=== PATIENT | male | born 1980 | race Caucasian/White ===

== ENCOUNTER 2018-11-05 19:43 | Observation (INO) ==
[2018-11-05] MEDS ORDERED: KETOROLAC TROMETHAMINE 60 MG/2 ML VIAL IM STA (20:50)
[2018-11-05] MEDS ORDERED: CYCLOBENZAPRINE HCL 10 MG TAB PO STA (20:51)
[2018-11-05] MEDS ORDERED: HYDROmorphone INJ 1 MG/ML SYRINGE IM STA (20:51)
--- NOTE | 2018-11-05 22:25 | Magnetic Resonance Report ---
MR lumbar spine wo con CLINICAL HISTORY: 37 years-old Male presenting with cauda equina, loss of bladder. TECHNIQUE: Multisequence, multiplanar MR imaging of the lumbar spine was performed without the use of intravenous contrast. IV contrast: None. COMPARISON: None. 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 Multiple sequences are degraded by motion artifact. This negatively affects diagnostic sensitivity th e exam. Straightening of normal lumbar lordosis possibly positional. Benign hemangioma noted in L2 and L4. Fa tty endplate changes noted at L5-S1. Vertebral bodies otherwise maintain normal height, alignment, alexandre ne marrow signal intensity. Moderate intervertebral disc height loss at L5-S1 with a disc extrusion e manating from the right paramedian aspect of the intervertebral disc with caudal migration. The extru ded fragment measures 10 x 9 mm in maximal axial dimension. This exerts mass effect on the transiting right S1 nerve root. Abutment of additional transiting right sacral nerve roots also possible. There is minimal bilateral neural foraminal narrowing at L5-S1. Remaining levels demonstrate no significan t spinal canal or neural foraminal narrowing. No paraspinal muscle edema. The spinal cord terminates in good position at the inferior endplate of L1. Cauda equina is poorly assessed though grossly lily l. T2 flow voids within the vasculature preserved. Remainder of the visualized soft tissues within no rmal limits. IMPRESSION: 1. Focal disc extrusion with caudal migration at L5-S1 resulting in mass effect on the transiting ri ght S1 nerve root and possible additional transiting right sacral nerve roots. Orthopedic/neurosurgic al consultation recommended. 2. No other evidence to suggest cauda equina impingement. The report will be called/faxed according to standard departmental protocol. Electronically signed by: Lee Cline M.D. 11/05/2018 10:23 PM
--- NOTE | 2018-11-05 22:39 | XRay Report ---
XR hip RT min 2V CLINICAL HISTORY: 37 years-old Male presenting with R hip pain since lifting a heavy object on Saturday . TECHNIQUE: Frontal and frog-leg lateral views of the right hip were obtained. COMPARISON: None. FINDINGS: Right hip joint congruent. No joint space loss. Femoral neck intact. Visualized portion of bony pelvi s intact. No acute fracture or malalignment. Calcification or ossification noted on frog-leg lateral view in the region of the left ischium, possibly degenerative related or posttraumatic. This is not c onvincing for an acute avulsion fracture fragment. No radiographic soft tissue abnormality. IMPRESSION: No acute osseous injury. Electronically signed by: Lee Cline M.D. 11/05/2018 10:38 PM
[2018-11-05] MEDS ORDERED: methylPREDNISolone 125 MG/2 ML VIAL IV STA (22:52)
[2018-11-05] MEDS ORDERED: HYDROmorphone INJ 1 MG/ML SYRINGE IV STA (22:52)
--- NOTE | 2018-11-05 23:04 | Emergency Department Note ---
Entered by Archana Rocha acting as a scribe for History of Present Illness General Chief complaint: Back Injury/Pain Stated complaint: BACK AND HIP PAIN Source: patient Mode of arrival: ambulatory Limitations: no limitations History of Present Illness Provider complaint: back pain Onset (ago): day(s) 5 Location: back and right Radiation: extremity Pain Consistency: + other (persistent ) Quality: + other (radiating) Associated symptoms: + other (peed himself) Treatments prior to arrival: other (ibuprofen, tylenol) The patient is a 37 year old male who presents to the Emergency Room with complaints of a persistent back pain that began 5 days ago. The patient reports that he first noticed the pain last Saturday while he was lifting a heavy sack of bread at work. He states that he felt the pain again on Saturday while lifting another heavy sack of bread and was evaluated at the ER. The patient notes that he did lose control of his bowels earlier today. He reports that the pain is in the lower right side of his back and that it radiates down his right hip/leg. He states that he has been taking Tylenol and ibuprofen to alleviate his symptoms. Home Medications Home Medications Medication Instructions Recorded Confirmed Type lysine 0 mg PO DAILY 11/03/18 11/05/18 History ibuprofen 800 mg PO TID #30 tab 11/07/18 Rx Allergies Allergy/AdvReac Type Severity Reaction Status Date / Time No Known Allergies Allergy Verified 11/05/18 22:47 Past Med/Surg History Medical History No significant active problems Social History Communication Ability: Effective Beliefs That Will Affect Care: None marital status: Single Current Living Situation: Alone current occupational status: employed Other Information That Helps Us Care for You: No Feels Safe at Home: Yes Safety Concerns: Feels Safe At This Time Smoking Status: Former smoker Hx Alcohol Use: No Hx Substance Use: No Review of Systems See HPI for pertinent positives & negatives. and A total of 10 systems reviewed and were otherwise negative Physical Exam Vital Signs Vital Signs - 24 hr 11/06/18 22:57 11/07/18 07:38 11/07/18 15:20 Temperature 36.8 C 36.4 C L 37.1 C Temperature Source Oral Oral Oral Pulse Rate [Right Finger] 60 59 L 70 Respiratory Rate 16 18 18 Blood Pressure [Right Arm] 129/83 104/64 149/82 H Blood Pressure Mean [Right Arm] 98 77 104 Blood Pressure Position [Right Arm] Lying Lying Pulse Oximetry 99 97 98 Oxygen Delivery Method Room Air Room Air Room Air 11/07/18 15:27 Temperature 37.1 C Temperature Source Pulse Rate [Right Finger] 70 Respiratory Rate 18 Blood Pressure [Right Arm] 149/82 H Blood Pressure Mean [Right Arm] Blood Pressure Position [Right Arm] Pulse Oximetry 98 Oxygen Delivery Method Vital signs reviewed. General: Well-appearing, in no significant distress. HEENT: No scleral icterus, PERRLA, neck supple. Atraumatic. Cardiovascular: Regular rate and rhythm, no extra sounds. Pulmonary: Clear to auscultation bilaterally, normal work of breathing. Abdomen: Soft, nontender, nondistended, positive bowel sounds. Musculoskeletal: Atraumatic, no peripheral edema. No tenderness along the lumbar spine, no CVA tenderness, negative straight leg raise. Full ROM of the right hip. Neurologic: Patient awake alert and oriented x 3 Skin: Warm, dry, no rash. Course 2047: Past medical records reviewed. The patient was evaluated in room C8, and a complete history and physical examination were performed. 2245: I reviewed the patient's case with Dr. Marroquin - Orthopedic Surgery. [facility] rec [facility] admission of the patient. 2258: I reviewed the patient's case with Dr. Bradford - [facility] Hospitalist. He will evaluate the patient for further management. Administered Medications Discontinued Medications Acetaminophen (Tylenol) 1,000 mg PO Q8H [facility] Stop: 12/06/18 16:14 Last Admin: 11/07/18 08:14 Dose: 1,000 mg Documented by: [id number] Admin: 11/07/18 00:16 Dose: 1,000 mg Documented by: [id number] Admin: 11/06/18 16:36 Dose: 1,000 mg Documented by: [id number] Calcium Gluconate (Calcium Gluconate 10%) Confirm Administered Dose 1,000 mg IV .STK-MED ONE Stop: 11/06/18 01:03 Last Admin: 11/06/18 01:34 Dose: Not Given Documented by: [id number] Cyclobenzaprine HCl (Flexeril) 10 mg PO NOW STA Stop: 11/05/18 20:52 Last Admin: 11/05/18 21:06 Dose: 10 mg Documented by: [id number] Diazepam (Valium) 2 mg PO TID PRN PRN Reason: muscle spasms Stop: 12/06/18 15:58 Last Admin: 11/07/18 11:33 Dose: 2 mg Documented by: [id number] Admin: 11/06/18 20:08 Dose: 2 mg Documented by: [id number] Hydromorphone HCl (Dilaudid) 1 mg IM NOW STA Stop: 11/05/18 20:52 Last Admin: 11/05/18 21:06 Dose: 1 mg Documented by: [id number] Hydromorphone HCl (Dilaudid) 1 mg IV NOW STA Stop: 11/05/18 22:53 Last Admin: 11/05/18 23:09 Dose: 1 mg Documented by: [id number] Calcium Gluconate 1,000 mg/ (Sodium Chloride) 60 mls @ 240 mls/hr IV NOW STA Stop: 11/06/18 01:08 Last Infusion: 11/06/18 01:43 Dose: 0 mls/hr Documented by: [id number] Admin: 11/06/18 01:25 Dose: 240 mls/hr Documented by: [id number] Potassium Chloride/Sodium Chloride (1/2 Nss + 20meq Kcl 1000ml) 20 meq in 1,000 mls @ 50 mls/hr IV .Q20H [facility] Stop: 12/06/18 02:29 Last Infusion: 11/06/18 08:40 Dose: 0 mls/hr Documented by: [id number] Admin: 11/06/18 02:31 Dose: 50 mls/hr Documented by: [id number] Ibuprofen (Motrin) 800 mg PO TID [facility] Stop: 12/06/18 20:59 Last Admin: 11/07/18 14:28 Dose: 800 mg Documented by: [id number] Admin: 11/07/18 08:14 Dose: 800 mg Documented by: [id number] Admin: 11/06/18 20:09 Dose: 800 mg Documented by: [id number] Ketorolac Tromethamine (Toradol) 60 mg IM NOW STA Stop: 11/05/18 20:51 Last Admin: 11/05/18 21:06 Dose: 60 mg Documented by: [id number] Ketorolac Tromethamine (Toradol) 15 mg IV Q4H PRN PRN Reason: Pain Stop: 11/11/18 00:34 Last Admin: 11/06/18 23:08 Dose: 15 mg Documented by: [id number] Admin: 11/06/18 19:33 Dose: 15 mg Documented by: [id number] Admin: 11/06/18 15:12 Dose: 15 mg Documented by: [id number] Admin: 11/06/18 02:36 Dose: 15 mg Documented by: [id number] Lidocaine (Lidoderm 5%) 1 patch TD HS [facility] Stop: 12/05/18 23:19 Last Admin: 11/06/18 20:08 Dose: 1 patch Documented by: [id number] Admin: 11/06/18 00:26 Dose: 1 patch Documented by: [id number] Methylprednisolone (Solumedrol) 125 mg IV NOW STA Stop: 11/05/18 22:53 Last Admin: 11/05/18 23:09 Dose: 125 mg Documented by: [id number] Miscellaneous (Remove Lidoderm Patch) 1 ea N/A QAM [facility] Stop: 12/06/18 10:59 Last Admin: 11/07/18 08:19 Dose: 1 ea Documented by: [id number] Admin: 11/06/18 10:56 Dose: 1 ea Documented by: [id number] Morphine Sulfate (Morphine Sulfate) 4 mg IV Q6H PRN PRN Reason: Pain Stop: 11/19/18 23:27 Last Admin: 11/07/18 00:41 Dose: 4 mg Documented by: [id number] Admin: 11/06/18 03:40 Dose: 4 mg Documented by: [id number] Oxycodone HCl (Roxicodone Immediate Rel) 5 mg PO Q4H PRN PRN Reason: Pain Stop: 11/20/18 16:01 Last Admin: 11/07/18 10:50 Dose: 5 mg Documented by: [id number] Admin: 11/07/18 05:38 Dose: 5 mg Documented by: [id number] Oxycodone/Acetaminophen (Percocet 5mg/325mg) 1 tab PO Q4H PRN PRN Reason: Pain Stop: 11/19/18 23:20 Last Admin: 11/06/18 06:45 Dose: 1 tab Documented by: [id number] Potassium Chloride (Klor-Con M20) 40 meq PO NOW STA Stop: 11/06/18 00:33 Last Admin: 11/06/18 00:58 Dose: 40 meq Documented by: [id number] Medical Decision Making Differential Diagnosis Differential Diagnosis includes: muscular strain, fracture, metastatic disease, disc herniation, sciatica, epidural abscess, vertebral osteomyelitis, discitis, spinal epidural hematoma, cord compression, cauda equina/conus medullaris syndrome, aortic disease, infection, shingles, renal colic, gastrointestinal, acute exacerbation of chronic back pain, as well as others were entertained. Medical Records Attestation: I reviewed the patient's medical records. Home Medications Current Medication List: was personally reviewed by me Laboratory Data Result diagrams: 11/05/18 23:01 11/06/18 07:39 Lab Results 11/05/18 11/05/18 11/06/18 Range/Units 23:01 23:01 07:39 WBC 6.77 (4.8-10.8) K/uL RBC 4.60 L (4.7-6.1) M/uL Hgb 14.0 (14.0-18.0) g/dL Hct 40.2 L (42-52) % MCV 87.4 (80-100) fL MCH 30.4 (25-34) pg MCHC 34.8 (32-36) g/dL RDW Std Deviation 40.2 (36.4-46.3) fL RDW Coeff of Eliu 12.5 (11.5-14.5) % Plt Count 162 (130-400) K/uL MPV 10.7 H (7.4-10.4) fL Immature Gran % (Auto) 0.1 % Neut % (Auto) 60.9 % Lymph % (Auto) 31.2 % Centre % (Auto) 6.8 % Eos % (Auto) 0.6 % Baso % (Auto) 0.4 % Immature Gran # (Auto) 0.01 (0.00-0.02) K/uL Neut # (Auto) 4.12 (1.4-6.5) K/uL Lymph # (Auto) 2.11 (1.2-3.4) K/uL Centre # (Auto) 0.46 (0.11-0.59) K/uL Eos # (Auto) 0.04 (0-0.5) K/uL Baso # (Auto) 0.03 (0-0.2) K/uL Sodium 142 140 (136-145) mmol/L Potassium 3.4 L 4.4 D (3.5-5.1) mmol/L Chloride 109 H 108 H (98-107) mmol/L Carbon Dioxide 26 27 (21-32) mmol/L Anion Gap 7.0 5.0 (3-11) BUN 21 H 19 H (7-18) mg/dl Creatinine 0.87 0.84 (0.6-1.4) mg/dl Est Cr Clr Drug Dosing 118.2 120.7 ml/min Est GFR ( Amer) 126.0 127.8 Est GFR (Non-Af Amer) 108.7 110.3 BUN/Creatinine Ratio 23.7 H 22.6 H (10-20) Glucose 90 143 H (70-99) mg/dl Calcium 8.2 L 8.6 (8.5-10.1) mg/dl Magnesium 2.0 (1.8-2.4) mg/dl Total Bilirubin 0.6 (0.2-1) mg/dl AST 9 L (15-37) U/L ALT 21 (12-78) U/L Alkaline Phosphatase 67 (45-117) U/L Troponin I < 0.015 (0-0.045) ng/ml Total Protein 7.2 (6.4-8.2) gm/dl Albumin 4.2 (3.4-5.0) gm/dl Globulin 3.0 (2.5-4.0) gm/dl Albumin/Globulin Ratio 1.4 (0.9-2) Imaging Data Radiologist's Impression: Radiology results as stated below per my review and the radiologist's interpretation: XR hip RT min 2V CLINICAL HISTORY: 37 years-old Male presenting with R hip pain since lifting a heavy object on Saturday. TECHNIQUE: Frontal and frog-leg lateral views of the right hip were obtained. COMPARISON: None. FINDINGS: Right hip joint congruent. No joint space loss. Femoral neck intact. Visualized portion of bony pelvis intact. No acute fracture or malalignment. Calcification or ossification noted on frog-leg lateral view in the region of the left ischium, possibly degenerative related or posttraumatic. This is not convincing for an acute avulsion fracture fragment. No radiographic soft tissue abnormality. IMPRESSION: No acute osseous injury. Electronically signed by: Lee Cline M.D. 11/05/2018 10:38 PM MR lumbar spine wo con CLINICAL HISTORY: 37 years-old Male presenting with cauda equina, loss of bladder. TECHNIQUE: Multisequence, multiplanar MR imaging of the lumbar spine was performed without the use of intravenous contrast. IV contrast: None. COMPARISON: None. 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 Multiple sequences are degraded by motion artifact. This negatively affects diagnostic sensitivity the exam. Straightening of normal lumbar lordosis possibly positional. Benign hemangioma noted in L2 and L4. Fatty endplate changes noted at L5-S1. Vertebral bodies otherwise maintain normal height, alignment, bone marrow signal intensity. Moderate intervertebral disc height loss at L5-S1 with a disc extrusion emanating from the right paramedian aspect of the intervertebral disc with caudal migration. The extruded fragment measures 10 x 9 mm in maximal axial dimension. This exerts mass effect on the transiting right S1 nerve root. Abutment of additional transiting right sacral nerve roots also possible. There is minimal bilateral neural foraminal narrowing at L5-S1. Remaining levels demonstrate no significant spinal canal or neural foraminal narrowing. No paraspinal muscle edema. The spinal cord terminates in good position at the inferior endplate of L1. Cauda equina is poorly assessed though grossly normal. T2 flow voids within the vasculature preserved. Remainder of the visualized soft tissues within normal limits. IMPRESSION: 1. Focal disc extrusion with caudal migration at L5-S1 resulting in mass effect on the transiting right S1 nerve root and possible additional transiting right sacral nerve roots. Orthopedic/neurosurgical consultation recommended. 2. No other evidence to suggest cauda equina impingement. The report will be called/faxed according to standard departmental protocol. Electronically signed by: Lee Cline M.D. 11/05/2018 10:23 PM Blood Pressure Blood Pressure Findings: Normal blood pressure Blood Pressure Disposition: did not require urgent referral MDM Narrative This patient was evaluated and appeared to be in no significant distress. Patient was initially medicated with IM Dilaudid, IM Toradol and p.o. Flexeril. X-rays of lumbar spine had been performed on the visit to the ED earlier this week. Those images were reviewed. X-ray of the right hip was performed as the patient continues to complain of discomfort, this study is negative for acute fracture. Given the patient's urinary incontinence earlier today, an MRI of the lumbar spine was performed. This study is read as above. There is a disc herniation at L5-S1 with sacral nerve root impingement. IV access was obtained and laboratory work was drawn. Patient was medicated with IV Dilaudid and methylprednisolone. The case was discussed with Dr. Marroquin of orthopedic spine given the patient's symptoms. He recommended medical admission and he will evaluate the patient. Dr. Kinsey of the hospitalist service was consulted. Patient is aware of the plan and agrees. Impression & Plan Intervertebral disc extrusion, Urinary incontinence Discharge Plan Visit Data *Final* Discharge Date/Time: 11/06/18 01:48 Chief Complaint: Back Injury/Pain Stated Complaint: BACK AND HIP PAIN ED Provider: Mima Yo Discharge Problem: Intervertebral disc extrusion, Urinary incontinence Patient Disposition: Admitted As Inpatient Condition: Good Discharge Instructions Interventions: ED Discharge Assessment Last Done: 11/06/18 01:48 Discharge Problem: Urinary incontinence Qualifiers: Urinary Incontinence type: unspecified incontinence Qualified Code(s): R32 - Unspecified urinary incontinence The scribe's documentation has been prepared under my direction and personally reviewed by me in its entirety. I confirm that the note above accurately reflects all work, treatment, procedures, and medical decision making performed by me.
[2018-11-05] MEDS ORDERED: OXYCODONE/ACETAMINOPHEN 5mg/325mg TAB PO PRN (23:21)
[2018-11-05] MEDS ORDERED: MoRPHine SULFATE 4 MG/ML 1 ML CARP\\VIAL IV PRN (23:28)
[2018-11-05 23:44] LABS: Basophils # (auto) 0.03 K/uL (0-0.2); Basophils % (auto) 0.4 %; Eosinophils # (auto) 0.04 K/uL (0-0.5); Eosinophils % (auto) 0.6 %; Hematocrit (blood only) 40.2 % (42-52); Immature Granulocytes # (auto) 0.01 K/uL (0.00-0.02); Immature Granulocytes % (auto) 0.1 %; Lymphocytes # (auto) 2.11 K/uL (1.2-3.4); Lymphocytes % (auto) 31.2 %; Mean Corpuscular Hgb Conc 34.8 g/dL (32-36); Mean Corpuscular Volume 87.4 fL (80-100); Mean Platelet Volume 10.7 fL (7.4-10.4); Monocytes # (auto) 0.46 K/uL (0.11-0.59); Monocytes % (auto) 6.8 %; Neutrophils # (auto) 4.12 K/uL (1.4-6.5); Neutrophils % (auto) 60.9 %; Platelet Count 162 K/uL (130-400); RDW Coefficient of Variation 12.5 % (11.5-14.5); RDW Standard Deviation 40.2 fL (36.4-46.3); White Blood Count 6.77 K/uL (4.8-10.8)
[2018-11-05 23:52] LABS: Alanine Aminotransferase 21 U/L (12-78); Albumin Level 4.2 gm/dl (3.4-5.0); Aspartate Aminotransferase 9 U/L (15-37); BUN Creatinine Ratio 23.7 (10-20); Blood Urea Nitrogen 21 mg/dl (7-18); Calcium 8.2 mg/dl (8.5-10.1); Carbon Dioxide 26 mmol/L (21-32); Chloride 109 mmol/L (98-107); Creatinine Clr Calc Pharmacy 118.2 ml/min; Est GFR (Non-African American) 108.7; Glucose 90 mg/dl (70-99); Potassium 3.4 mmol/L (3.5-5.1); Sodium 142 mmol/L (136-145)
[2018-11-05 23:54] LABS: Albumin Globulin Ratio 1.4 (0.9-2); Alkaline Phosphatase 67 U/L (45-117); Bilirubin,Total 0.6 mg/dl (0.2-1); Total Protein 7.2 gm/dl (6.4-8.2)
[2018-11-06 00:12] LABS: Troponin I < 0.015 ng/ml (0-0.045)
[2018-11-06] MEDS: LIDOCAINE 5% 1 PATCH TD SCH ×2 (00:26→20:08)
[2018-11-06] MEDS ORDERED: POTASSIUM CHLORIDE 20 MEQ TABCR PO STA (00:32)
[2018-11-06] MEDS ORDERED: CALCIUM GLUCONATE 10% 1,000 MG in SODIUM CHLORIDE 0.9% 50 ML IV STA (00:54)
--- NOTE | 2018-11-06 00:59 | History & Physical Report ---
Date of Service November 06, 2018 Assessment & Plan (1) Lumbosacral radiculopathy: LS radiculopathy with transient bowel incontinence S OB secondary to anxiety Hypokalemia Past tobacco abuse OBS GMF Analgesia Lidoderm patch trial Orthopedics spine consult RE back pain, abnormal MRI (ER provider already in touch with Dr. Marroquin) Anxiolytic as needed replace potassium DVT prophylaxis. SCDs Full code History of Present Illness Chief Complaint: Back pain Primary Care Provider: Kristine [facility] In Medicine History obtained from patient and records. Medical history significant for past tobacco abuse. 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 Persistent symptoms prompted ER consultation 3 days ago. Unremarkable plain LS XR. Intermittent pain relief with Tylenol/ibuprofen at home. Patient had constant low back pain symptoms the last few days without leg weakness/numbness. Last night patient noted some bowel incontinence. No fever, no chills. At the ER, patient felt short of breath after being told that he might get short of breath following IV narcotic administration for pain. Denies chest pain, cough symptoms. IV Solu-Medrol administered at the ER. Medical History as above Surgical History : Right hand trauma surgery Family History : HTN Personal/Social history : Past tobacco abuse, occasional EtOH intake, fast food restaurant employee Allergies Allergy/AdvReac Type Severity Reaction Status Date / Time No Known Allergies Allergy Verified 11/05/18 22:47 Home Medications Home Medications Medication Instructions Recorded Confirmed Type lysine 0 mg PO DAILY 11/03/18 11/05/18 History Past Med/Surg History Medical History No significant active problems Social History Preferred Language: Austrian Communication Ability: Effective Land Degradation Analyst Required: No Beliefs That Will Affect Care: None Current Living Situation: Alone current occupational status: employed Other Information That Helps Us Care for You: No Feels Safe at Home: Yes Safety Concerns: Feels Safe At This Time Smoking Status: Former smoker Hx Alcohol Use: No Hx Substance Use: No Review of Systems As per HPI, all 10 systems reviewed, all other ROS negative Physical Exam Vital Signs (Past 24 Hours): Last Vital Signs Temp 37.0 C 11/05/18 19:55 Pulse 77 11/06/18 00:27 Resp 18 11/06/18 00:27 BP 128/82 11/06/18 00:27 Pulse Ox 96 11/06/18 00:27 Physical Exam: GENERAL: Slightly uncomfortable and anxious, no respiratory distress SKIN: Normal color, warm HEENT: Bespectacled, pink palpebral conjunctivae, no ptosis, dry buccal mucosa NECK : Supple, no tenderness CHEST : CTA, no tenderness HEART : RRR, no obvious murmurs ABDOMEN: Soft, nontender BACK : Right hip tenderness; negative straight leg raise test at time of exam EXTREMITIES : No LE swelling/tenderness, no other conspicuous deformities noted NEUROLOGIC : Coherent, no facial asymmetry, no other gross focality Results & Data Laboratory Results Laboratory Results WBC 6.77 K/uL (4.8-10.8) 11/05/18 23: RBC 4.60 M/uL (4.7-6.1) L 11/05/18: Hgb 14.0 g/dL (14.0-18.0) 11/05/18: Hct 40.2 % (42-52) L 11/05/18: MCV 87.4 fL (80-100) 11/05/18: MCH 30.4 pg (25-34) 11/05/18: MCHC 34.8 g/dL (32-36) 11/05/18 23: RDW Std Deviation 40.2 fL (36.4-46.3) 11/05/18: RDW Coeff of Eliu 12.5 % (11.5-14.5) 11/05/18: Plt Count 162 K/uL (130-400) 11/05/18 23: MPV 10.7 fL (7.4-10.4) H 11/05/18: Immature Gran % (Auto) 0.1 % 11/05/18: Neut % (Auto) 60.9 % 11/05/18: Lymph % (Auto) 31.2 % 11/05/18: Barren % (Auto) 6.8 % 11/05/18: Eos % (Auto) 0.6 % 11/05/18: Baso % (Auto) 0.4 % 11/05/18: Immature Gran # (Auto) 0.01 K/uL (0.00-0.02) 11/05/18 23: Neut # (Auto) 4.12 K/uL (1.4-6.5) 11/05/18 23: Lymph # (Auto) 2.11 K/uL (1.2-3.4) 11/05/18 23: Barren # (Auto) 0.46 K/uL (0.11-0.59) 11/05/18 23: Eos # (Auto) 0.04 K/uL (0-0.5) 11/05/18 23: Baso # (Auto) 0.03 K/uL (0-0.2) 11/05/18 23: Sodium 142 mmol/L (136-145) 11/05/18 23: Potassium 3.4 mmol/L (3.5-5.1) L 11/05/18 23: Chloride 109 mmol/L (98-107) H 11/05/18 23: Carbon Dioxide 26 mmol/L (21-32) 11/05/18 23: Anion Gap 7.0 (3-11) 11/05/18 23: BUN 21 mg/dl (7-18) H 11/05/18 23: Creatinine 0.87 mg/dl (0.6-1.4) 11/05/18 23: Est Cr Clr Drug Dosing 118.2 ml/min 11/05/18 23: Est GFR ( Amer) 126.0 11/05/18 23: Est GFR (Non-Af Amer) 108.7 11/05/18 23: BUN/Creatinine Ratio 23.7 (10-20) H 11/05/18 23: Glucose 90 mg/dl (70-99) 11/05/18 23: Calcium 8.2 mg/dl (8.5-10.1) L 11/05/18 23: Magnesium 2.0 mg/dl (1.8-2.4) 11/05/18 23: Total Bilirubin 0.6 mg/dl (0.2-1) 11/05/18 23: AST 9 U/L (15-37) L 11/05/18 23: ALT 21 U/L (12-78) 11/05/18 23: Alkaline Phosphatase 67 U/L (45-117) 11/05/18 23: Troponin I < 0.015 ng/ml (0-0.045) 11/05/18 23: Total Protein 7.2 gm/dl (6.4-8.2) 11/05/18 23: Albumin 4.2 gm/dl (3.4-5.0) 11/05/18: Globulin 3.0 gm/dl (2.5-4.0) 11/05/18 23: Albumin/Globulin Ratio 1.4 (0.9-2) 11/05/18 23: Diagnostic Findings Lumbar spine MRI: 1. Focal disc extrusion with caudal migration at L5-S1 resulting in mass effect on the transiting right S1 nerve root and possible additional transiting right sacral nerve roots. Orthopedic/neurosurgical consultation recommended. 2. No other evidence to suggest cauda equina impingement. Chest x-ray as per my interpretation no acute pathology EKG as per my interpretation rate 65, NSR, no ischemia
[2018-11-06] MEDS ORDERED: CALCIUM GLUCONATE 10% 10 ML VIAL IV ONE (01:02)
[2018-11-06] MEDS ORDERED: SODIUM CHLOR 0.45% + 20MEQ KCL 20 MEQ/1,000 ML BAG IV SCH ×2 (02:08→02:30)
[2018-11-06] MEDS ORDERED: LORazepam 0.25 MG/0.5 ML VIAL IV PRN ×2 (02:08)
[2018-11-06] MEDS ORDERED: IBUPROFEN 200 MG TAB PO PRN ×2 (02:08)
[2018-11-06] MEDS ORDERED: PROCHLORPERAZINE 5 MG in SYRINGE 4 ML IV PRN (02:08)
[2018-11-06] MEDS: KETOROLAC TROMETHAMINE 15 MG/ML VIAL IV PRN ×4 (02:36→23:08)
[2018-11-06] MEDS: MoRPHine SULFATE 4 MG/ML 1 ML CARP\\VIAL IV PRN (03:40)
--- NOTE | 2018-11-06 06:44 | XRay Report ---
XR chest 1V portable CLINICAL HISTORY: Shortness of breath. COMPARISON STUDY: No previous studies for comparison. FINDINGS: Lung volumes are normal. There is no pneumothorax or pleural effusion. There is no consolid ation or evidence for pulmonary edema. Cardiac size is normal. Mediastinal contours are normal. IMPRESSION: No acute cardiopulmonary findings. Electronically signed by: Kevin Pinto M.D. 11/06/2018 6:42 AM
--- NOTE | 2018-11-06 08:18 | Consultation Report ---
DATE OF ADMISSION: 11/06/2018 CHIEF COMPLAINT: Back pain, lower extremity difficulty, paresthesias. HISTORY OF PRESENT ILLNESS: Weston is pleasant. He is 37. He was lifting at his place of employment a week or so earlier, some acute pop, pain to his lumbar spine and right lower extremity difficulty. He was seen as an outpatient, then brought to the ER for evaluation and treatment. He was seen in the hospital, thoroughly evaluated. He had a disc herniation of the spine. He was admitted for pain control. He did have 1 red flag where he is concerned about bladder leakage and bladder incontinence that little bit of a false alarm, I do not think it was overall legitimate and more may be he was hesitant with his stream. As of this morning at approximately 7:15 a.m., he has no bowel and bladder issues. He has been up to the bathroom. He is urinating. His pain is controlled, thanks to the medication. OBJECTIVE: Examination is benign. Mild pain with straight leg raising, but no weakness. No sensory or motor deficit. Images reviewed. He does on MRI scan have a disc protrusion of the spine, L5-S1. It knocks up against the S1 nerve root on the affected right hand side. There is no cauda equina compression. There is no bone plate edema. ASSESSMENT: Includes that of a delightful gentleman with a disc protrusion lumbar spine, L5-S1 on the right without cauda equina syndrome. PLAN: Surgery is not indicated today my evolve into surgery, but not today whatsoever. These patients traditionally and optimistically will improve with conservative measures. This will be a combination of good anti-inflammatory agents such as Toradol, anti-inflammatory agents, mild narcotics, sometimes a dose of steroids, sometimes epidural steroids. Physical therapy is typically used, but I do not see a lot of benefit in physical therapy. I will be visiting with the patient later on today after my surgeries, but again surgery is not indicated and he may be fed. I anticipate him going home later today or tomorrow.
[2018-11-06 08:27] LABS: BUN Creatinine Ratio 22.6 (10-20); Calcium 8.6 mg/dl (8.5-10.1); Creatinine Clr Calc Pharmacy 120.7 ml/min; Est GFR (African American) 127.8; Est GFR (Non-African American) 110.3; Potassium 4.4 mmol/L (3.5-5.1)
[2018-11-06] MEDS ORDERED: ONDANSETRON 4 MG TAB PO PRN (16:00)
[2018-11-06] MEDS: ACETAMINOPHEN 500 MG TAB PO SCH (16:36)
--- NOTE | 2018-11-06 18:37 | Hospitalist Progress Note ---
Date of Service November 06, 2018 Assessment & Plan (1) Lumbosacral radiculopathy: Lumbosacral radiculopathy secondary to focal disc migration with mass- effect on S1 nerve root. The patient is neurologically intact with no focal deficits on exam. Straight leg raise is positive on the right. conservative measures are recommended. The patient will continue on scheduled Motrin and Tylenol and will stay overnight to continue pain control efforts. (2) DVT (deep venous thrombosis): SCDs Full Dispo-DC home in a.m. Iliana Guzmán DO [facility] Hospitalist Subjective 37-year-old man presents with acute right hip pain. Lumbar spine MRI revealed focal disc extrusion extrusion with caudal migration of L5-S1 resulting in mass- effect on the transiting right S1 nerve root and possible additional transiting right sacral nerve roots. Dr. Marroquin was in to see him this morning and does not recommend surgery at this time opting for conservative measures instead. The patient has been doing well and his pain is somewhat controlled although he has required some narcotic medications and IV Toradol today. He did ambulate with physical therapy but developed a cramp in the session was caught early. We discussed the benefits of staying versus being discharged today and discussed that we would schedule Motrin and Tylenol for now to see if this would help. He can stay overnight for additional recovery and have another opportunity to discuss this with Dr. Marroquin. He is otherwise tolerating p.o., mentating at baseline and he is hemodynamically stable and afebrile. Physical Exam Vital Signs (Past 24 Hours): Last Vital Signs Temp 37 C 11/06/18 15:19 Pulse 68 11/06/18 15:19 Resp 16 11/06/18 15:19 BP 125/74 11/06/18 15:19 Pulse Ox 93 11/06/18 15:19 CONSTITUTIONAL: WNWD, vitals as above, generally well-appearing moves around the bed with ease. Able to stand up at bedside with ease. EYES: normal conjuctivae, no scleral icterus ENT: MMM RESPIRATORY: clear to auscultation bilaterally, no crackles, rales or wheezes, normal respiratory effort CARDIOVASCULAR: regular rate and rhythm, S1 and 2 heard without murmurs, gallops or rubs, no JVD, no peripheral edema, no carotid bruits GASTROINTESTINAL: normal bowel sounds, soft, nontender, nondistended MUSCULOSKELETAL: strength 5/5 throughout, head is normocephalic and atraumatic, neck supple, normal palpation of chest wall without tenderness SKIN: warm and dry NEUROLOGIC: +SLR on right, patellar DTR 2+ bilat. No facial palsy, no dysarthria. CN 2-12 grossly intact, no sensory deficit, normal cognition, normal speech PSYCHIATRIC: alert cooperative and oriented to person, place and time. Results & Data Laboratory Results Short CBC 11/05/18 Range/Units 23:01 WBC 6.77 (4.8-10.8) K/uL Hgb 14.0 (14.0-18.0) g/dL Hct 40.2 L (42-52) % Plt Count 162 (130-400) K/uL BMP 11/05/18 11/06/18 23:01 07:39 Sodium 142 140 Potassium 3.4 L 4.4 D Chloride 109 H 108 H Carbon Dioxide 26 27 BUN 21 H 19 H Creatinine 0.87 0.84 Glucose 90 143 H Calcium 8.2 L 8.6 Cardiac Enzymes 11/05/18 Range/Units 23:01 Troponin I < 0.015 (0-0.045) ng/ml Liver Function 11/05/18 Range/Units 23:01 Total Bilirubin 0.6 (0.2-1) mg/dl AST 9 L (15-37) U/L ALT 21 (12-78) U/L Alkaline Phosphatase 67 (45-117) U/L Albumin 4.2 (3.4-5.0) gm/dl Medications Administered Current Inpatient Medications Acetaminophen (Tylenol) 1,000 mg PO Q8H HUSSAIN Stop: 12/06/18 16:14 Last Admin: 11/06/18 16:36 Dose: 1,000 mg Documented by: Diazepam (Valium) 2 mg PO TID PRN PRN Reason: muscle spasms Stop: 12/06/18 15:58 Ibuprofen (Motrin) 800 mg PO TID HUSSAIN Stop: 12/06/18 20:59 Ketorolac Tromethamine (Toradol) 15 mg IV Q4H PRN PRN Reason: Pain Stop: 11/11/18 00:34 Last Admin: 11/06/18 15:12 Dose: 15 mg Documented by: Lidocaine (Lidoderm 5%) 1 patch TD HS HUSSAIN Stop: 12/05/18 23:19 Last Admin: 11/06/18 00:26 Dose: 1 patch Documented by: Miscellaneous (Remove Lidoderm Patch) 1 ea N/A QAM HUSSAIN Stop: 12/06/18 10:59 Last Admin: 11/06/18 10:56 Dose: 1 ea Documented by: Morphine Sulfate (Morphine Sulfate) 4 mg IV Q6H PRN PRN Reason: Pain Stop: 11/19/18 23:27 Last Admin: 11/06/18 03:40 Dose: 4 mg Documented by: Ondansetron HCl (Zofran) 4 mg PO Q8H PRN PRN Reason: Nausea Stop: 12/06/18 15:59 Oxycodone HCl (Roxicodone Immediate Rel) 5 mg PO Q4H PRN PRN Reason: Pain Stop: 11/20/18 16:01
--- NOTE | 2018-11-06 18:42 | Progress Note ---
DATE: 11/06/2018 He is alert, oriented. Pain controlled, ambulatory, taking p.o. Neurologically intact. Vascular structures intact. Images reviewed demonstrating a disc herniation in the lumbar spine, albeit moderately mild at L5-S1. PLAN: I would recommend him going home today or tomorrow. I should see him back in the office next week. Please call [phone] to make an appointment. A regime of Toradol, steroids and gabapentin should be appropriate. He may be off work and again we will see him back next week and take things from there.
[2018-11-06] MEDS: diazePAM 2 MG TABLET PO PRN (20:08)
[2018-11-06] MEDS: IBUPROFEN 800 MG TAB PO SCH (20:09)
[2018-11-07] MEDS: ACETAMINOPHEN 500 MG TAB PO SCH ×2 (00:16→08:14)
[2018-11-07] MEDS: MoRPHine SULFATE 4 MG/ML 1 ML CARP\\VIAL IV PRN (00:41)
[2018-11-07] MEDS: OXYCODONE HCL IR 5 MG TAB (IMMEDIATE RELEASE) PO PRN ×2 (05:38→10:50)
[2018-11-07] MEDS: IBUPROFEN 800 MG TAB PO SCH ×2 (08:14→14:28)
[2018-11-07] MEDS: diazePAM 2 MG TABLET PO PRN (11:33)
--- NOTE | 2018-11-07 12:02 | Discharge Summary ---
Date of Service November 07, 2018 Admission HPI Per Admitting Provider History obtained from patient and records. Medical history significant for past tobacco abuse. 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 Persistent symptoms prompted ER consultation 3 days ago. Unremarkable plain LS XR. Intermittent pain relief with Tylenol/ibuprofen at home. Patient had constant low back pain symptoms the last few days without leg weakness/numbness. Last night patient noted some bowel incontinence. No fever, no chills. At the ER, patient felt short of breath after being told that he might get short of breath following IV narcotic administration for pain. Denies chest pain, cough symptoms. IV Solu-Medrol administered at the ER. Medical History as above Surgical History : Right hand trauma surgery Family History : HTN Personal/Social history : Past tobacco abuse, occasional EtOH intake, fast food restaurant employee Admission Exam Per Admitting Provider Temp 37.0 C 11/05/18 19:55 Pulse 77 11/06/18 00:27 Resp 18 11/06/18 00:27 BP 128/82 11/06/18 00:27 Pulse Ox 96 11/06/18 00:27 Physical Exam: GENERAL: Slightly uncomfortable and anxious, no respiratory distress SKIN: Normal color, warm HEENT: Bespectacled, pink palpebral conjunctivae, no ptosis, dry buccal mucosa NECK : Supple, no tenderness CHEST : CTA, no tenderness HEART : RRR, no obvious murmurs ABDOMEN: Soft, nontender BACK : Right hip tenderness; negative straight leg raise test at time of exam EXTREMITIES : No LE swelling/tenderness, no other conspicuous deformities noted NEUROLOGIC : Coherent, no facial asymmetry, no other gross focality Principal Diagnosis Disc protrusion of lumbar spine Discharge Data Allergies Allergy/AdvReac Type Severity Reaction Status Date / Time No Known Allergies Allergy Verified 11/05/18 22:47 Consultations 11/05/18 22:58 ED Decision to Admit Stat 11/06/18 02:08 Consult Orthopedic Surgery Routine Ordered Studies 11/05/18 20:48 MR lumbar spine wo con Stat Hospital Course (1) Lumbosacral radiculopathy: 37-year-old man presents with acute right hip pain. Lumbar spine MRI revealed focal disc extrusion extrusion with caudal migration of L5-S1 resulting in mass- effect on the transiting right S1 nerve root and possible additional transiting right sacral nerve roots. Dr. Marroquin was consulted from [facility] and does not recommend surgery at this time opting for conservative measures instead. The patient has been doing well and his pain appears well-controlled. On 11/06 he was able to ambulate with minimal assistance, sit up easily in bed and stand with ease at the bedside. Physical exam was positive for striaght leg raise on the right, but this was the only significant exam finding. He was placed on Tylenol and Motrin. The next day, he was again doing well but said that he specifically needed four medications to treat his pain. I asked him to clarify what it was he wanted specifically and he told me to shut up because I was confusing him. He then told me that he wanted a walker, and when I told him he shouldn't need one as he was able to complete physical therapy, he told me that he wanted one because this was a workman's compensation claim and it would be paid for. I then told him that he would be discharged from the hospital at which point he became upset, buried his head in the pillow and told me to leave the room because he wouldn't talk with me any longer. I initially considered giving him some narcotic medication to go home with in the event of breakthrough pain, however, decided against this after the demonstrated change in behavior. I am concerned that he will divert medications, and feel uncomfortable with this as there appears to be reported symptoms which are changing (yesterday the pain was well controlled and minimal pain meds were needed, however, today he needs specifically four pain medications to go home with.) He was told he was discharged and he said that despite this, he refused to leave the building until he was ready. Case Management and nursing were notified and he received a taxi voucher to go home. Primary care follow-up recommended with CV, whom he saw 6 weeks ago for this issue. It would be recommended to monitor him while taking consistent anti-inflammatories. At time of discharge he was hemodynamically stable and afebrile and was ambulating without assistance. He refused physical exam at time of discharge. He was discharged in stable condition. Total Time Total Time Spent Total Time Spent (In Minutes): 60 minutes Total Time Includes: Examination of the Patient, Discharge Planning, Medication Reconciliation and Communication With Other Providers Discharge Plan Discharge Items Patient Disposition: Home - Self-Care Reason For Visit: BACK AND HIP PAIN Discharge Diagnosis: Disc protrusion of lumbar spine Condition: Good Discharge Goals: Decrease discomfort Activity: Resume your previous activity Non-emergency contact: Primary Care Provider Call non-emergency contact if: you have any medication questions, your symptoms worsen, your pain is not controlled, your pain is worsening, your pain is unusual for you, your pain is concerning for you and you have a fever [facility] - Diet: Regular Addtl Provider Instructions: Please take all medications as instructed It is recommended that you use Tylenol 1000 mg and ibuprofen 800 mg 3 times a day as needed for pain. Please follow-up with your primary care physician within 1 week of discharge Prescriptions: New ibuprofen 800 mg Tablet 800 mg PO TID Qty: 30 RF: 0 Continued lysine 500 mg Tablet PO DAILY RF: 0 Stand-Alone Forms: [facility] Discharge Orders: Discharge Order (Routine); Ordered 11/07/18 Ordered By: Iliana Guzmán Admission Data Admit Date/Time: 11/06/18 01:01 Attending Provider: Iliana Guzmán Admit Provider: Lasha Bradford [facility] Other Providers: Lasha Bradford ; Richard Marroquin Service: Surgical Services
[2018-11-07] MEDS ORDERED: IBUPROFEN 800 MG TAB PO PRN (15:12)
[2018-11-07] MEDS ORDERED: ACETAMINOPHEN 500 MG TAB PO PRN (15:12)
--- NOTE | 2018-11-07 15:15 | Hospitalist Progress Note ---
Date of Service November 07, 2018 Assessment & Plan (1) Lumbosacral radiculopathy: Lumbosacral radiculopathy secondary to focal disc migration with mass- effect on S1 nerve root. The patient is neurologically intact with no focal deficits on exam. Straight leg raise is positive on the right. conservative measures are recommended. The patient will continue on scheduled Motrin and Tylenol and will stay overnight to continue pain control efforts. (2) DVT (deep venous thrombosis): SCDs Full Dispo-DC home in a.DO Nazario Roque Hospitalist Physical Exam Vital Signs (Past 24 Hours): Last Vital Signs Temp 36.4 C L 11/07/18 07:38 Pulse 59 L 11/07/18 07:38 Resp 18 11/07/18 07:38 BP 104/64 11/07/18 07:38 Pulse Ox 97 11/07/18 07:38
== END 2018-11-07 17:59 | disposition home or self-care (01) ==
LOC: ED 19:43 → 3W 19:43

== ENCOUNTER 2023-05-26 19:04 | Observation (INO) ==
[2023-05-26] MEDS ORDERED: ONDANSETRON 4 MG OD TAB PO STA (19:29)
--- NOTE | 2023-05-26 19:48 | Emergency Department Note ---
Impression & Plan Acute alteration in mental status, Alcohol intoxication, Aspiration into airway ED Provider Note NAME: GREGOR JASMINE AGE: 42 SEX: M : 1980 ARRIVES VIA: Ambulance INFORMANT: Patient, ED PROVIDER(S): Jose Cuba DO CHIEF COMPLAINT: Altered mental status HPI: History was limited secondary the patient's altered mental status. The patient is a 42-year-old male who presented to the emergency department for an evaluation of altered mental status. The patient was at an alcoholic Anonymous meeting. He was found by people at the meeting on the floor. There was possible trauma as the patient was found on the floor. It was unclear exactly what happened. The patient became combative at times. 911 was called. The patient arrived via ambulance. There was reported episode of emesis prior to arrival. The patient does not offer any complaints but does appear to be intoxicated. ROS: See above HPI for pertinent positives & negatives. A total of 10 systems reviewed and were otherwise negative. PAST MEDICAL HISTORY: See Below PAST SURGICAL HISTORY: See Below FAMILY HISTORY: See Below SOCIAL HISTORY: See Below HOME MEDICATIONS: See Below ALLERGIES: See Below VITALS: See Below PHYSICAL EXAMINATION: GENERAL: The patient is awake to verbal commands. He falls asleep easily. There is no trauma noted on the face or neck. EYES: The conjunctivae are clear. The pupils are round and reactive. EARS, NOSE, MOUTH AND THROAT: The nose is without any evidence of any deformity. Mucous membranes are moist. NECK: The neck is nontender and supple. RESPIRATORY: Normal respiratory effort is noted there is no evidence of wheezing rhonchi or rales CARDIOVASCULAR: Regular rate and rhythm noted there no murmurs rubs or gallops normal S1 normal S2. GASTROINTESTINAL: The abdomen is soft. Abdomen is nontender. MUSCULOSKELETAL/EXTREMITIES: There is no evidence of gross deformity full range of motion is noted in the hips and shoulders. SKIN: There is no obvious evidence of any rash. There are no petechiae, pallor or cyanosis noted. NEUROLOGIC: Patient is awake to verbal commands. The patient is moving all extremities well. He is not oriented to place or time. MEDICAL DECISION MAKING: The patient is a 42-year-old male who presented to the emergency department for altered mental status. The patient initially did not have an adequate history. I did discuss the patient's presentation with the prehospital personnel that brought the patient here. Apparently the patient was in a building where they were holding an alcoholic Anonymous meeting. The patient was found on the floor. He appeared to be obtunded and intoxicated. He was brought to the emergency department for further evaluation. The patient was not able to answer questions initially. There was also some history that he may have vomited. The patient was found to have signs of aspiration on chest x-ray. The patient further had studies that included CT of the head and neck to ensure no underlying trauma was present. I tried to reevaluate the patient multiple times. Given his signs of aspiration I do not feel the patient would be a good candidate for outpatient management at this time. I discussed the case with the [facility] hospitalist. Triage Nursing notes reviewed. Prior medical records reviewed Vital Signs: reviewed and remarkable for no significant abnormalities Differential diagnosis: Infection, hypoglycemia, electrolyte abnormalities, overdose, toxicologic, ca rdiac sources, intracerebral event, neurologic, trauma, as well as other pathologies. ER treatment provided: See below Diagnostics interpreted by me: ECG: EKG was obtained in the emergency department. My interpretation is normal sinus rhythm at 70 bpm. There is no ectopy. There is no acute ST segment abnormalities noted. No previous tracing was available. Cardiac Monitoring: An order was placed for continuous cardiac monitoring. The monitor shows a rate of 77 bpm with sinus rhythm. Laboratory studies: As stated above and show below. Imaging studies: See below. Radiographic imaging was reviewed by myself Consultation(s): I discussed this case with Dr. Ordaz who is on-call for the [facility]. Past Med/Surg History Social History Smoking Status: Current every day smoker Results & Data (ED) Vital Signs Vital Signs - 24 hr 05/26/23 19:05 05/26/23 19:20 05/26/23 19:20 Temperature 36.7 C Temperature Source Oral Pulse Rate 62 Pulse Rate [Apical] 65 Respiratory Rate 15 14 Blood Pressure 116/79 Blood Pressure [Left Arm] Blood Pressure Mean 91 Blood Pressure Mean [Left Arm] Pulse Oximetry 96 99 Oxygen Delivery Method Room Air Sepsis Recent Fever Within 48 Hours No Sepsis New/Unexplained Change in Mental Status No Sepsis Action Taken by Nursing No Action Required 05/26/23 19:25 05/26/23 19:29 05/26/23 21:00 Temperature Temperature Source Pulse Rate 64 64 Pulse Rate [Apical] 85 Respiratory Rate 16 13 Blood Pressure Blood Pressure [Left Arm] 106/68 Blood Pressure Mean Blood Pressure Mean [Left Arm] 80 Pulse Oximetry 100 97 Oxygen Delivery Method Room Air Sepsis Recent Fever Within 48 Hours Sepsis New/Unexplained Change in Mental Status Sepsis Action Taken by Nursing 05/26/23 22:18 05/26/23 23:00 05/26/23 23:31 Temperature Temperature Source Pulse Rate 67 77 Pulse Rate [Apical] 71 Respiratory Rate 14 20 Blood Pressure Blood Pressure [Left Arm] 101/75 Blood Pressure Mean Blood Pressure Mean [Left Arm] 83 Pulse Oximetry 98 99 Oxygen Delivery Method Sepsis Recent Fever Within 48 Hours Sepsis New/Unexplained Change in Mental Status Sepsis Action Taken by [facility] Medications Current Medication List: was personally reviewed by me Laboratory Data Attestation: I reviewed the patient's lab results. 05/26/23 19:15 Lab Results 05/26/23 05/26/23 05/26/23 Range/Units 19:15 19:15 23:30 VBG pH 7.34 L (7.36-7.41) VBG pCO2 56 H (38-50) mmHg VBG pO2 35 mmHg VBG HCO3 30 mmol/L VBG O2 Saturation < 60.0 % VBG Base Excess 3.1 mEq/L Sodium 145 (136-145) mmol/L Potassium 3.7 (3.5-5.1) mmol/L Chloride 111 H (98-107) mmol/L Carbon Dioxide 27 (21-32) mmol/L Anion Gap 7 (3-11) BUN 13 (6-23) mg/dl Creatinine 0.88 (0.6-1.4) mg/dl Est Cr Clr Drug Dosing Not Reportable Est GFR ( Amer) 121.1 ml/min Est GFR (Non-Af Amer) 104.5 ml/min BUN/Creatinine Ratio 14.8 (10-20) Glucose 112 H (70-99(Fasting)) mg/dl Calcium 8.8 (8.6-10.3) mg/dl Total Bilirubin 0.4 (0.2-1.0) mg/dl AST 22 (13-39) U/L ALT 19 (7-52) U/L Alkaline Phosphatase 63 (34-104) U/L Total Protein 7.0 (6.0-8.3) gm/dl Albumin 4.6 (3.4-5.0) gm/dl Globulin 2.4 L (2.5-4.0) gm/dl Albumin/Globulin Ratio 1.9 (0.9-2) Ethyl Alcohol mg/dL 282.0 H (<10.0) mg/dl Administered Medications Sodium Chloride (Nss) 500 mls @ 999 mls/hr IV .Q31M STA Stop: 05/26/23 23:45 Last Admin: 05/26/23 23:27 Dose: 999 mls/hr Documented By: MIKE Imaging Data Attestation: I personally reviewed and interpreted this imaging study as follows: My Impression: 1 view chest x-ray was obtained in the emergency department. My interpretation is haziness at the right base, no free air, final report pending. CT of the brain was obtained in the emergency department. My interpretation is no intracranial hemorrhage or mass effect, final report below Radiologist's Impression: Cervical Spine CT 05/26/23 19:43 Exam(s): CT C SPINE EXAM: CT Cervical Spine Without Intravenous Contrast CLINICAL HISTORY: Reason for exam: trama. TECHNIQUE: Axial computed tomography images of the cervical spine without intravenous contrast. CTDI is 23.41 mGy and DLP is 518.29 mGy-cm. Automated exposure control was utilized for the study. A dose lowering technique was utilized adhering to the principles of ALARA. COMPARISON: No relevant prior studies available. FINDINGS: The vertebral body heights are maintained. The craniocervical junction is intact. The atlanto-dens interval is maintained. The dens is intact. There is no spondylolisthesis. Multilevel cervical spondylosis and degenerative disc disease. Straightening of the cervical lordosis. The unenhanced neck soft tissues are grossly unremarkable. The visualized lung apices are grossly clear. IMPRESSION: No acute fracture or subluxation of the cervical spine. Electronically signed by: Cresencio Rodney MD 05/26/23 21:[address] 05/26/23 19:43 Exam(s): CT HEAD Without Contrast EXAM: CT Head Without Intravenous Contrast CLINICAL HISTORY: Reason for exam: trauma. TECHNIQUE: Axial computed tomography images of the head/brain without intravenous contrast. CTDI is 38.43 mGy and DLP is 702.46 mGy-cm. Automated exposure control was utilized for the study. A dose lowering technique was utilized adhering to the principles of ALARA. COMPARISON: No relevant prior studies available. FINDINGS: No acute intracranial hemorrhage. No midline shift or mass effect. The territorial ibrahim-white matter differentiation is maintained throughout. The ventricles and sulci are commensurate with age. The visualized orbits appear grossly unremarkable. The calvarium is intact. The visualized paranasal sinuses and mastoid air cells are grossly clear. IMPRESSION: No acute intracranial hemorrhage, midline shift, or mass effect. Electronically signed by: Cresencio Rodney MD 05/26/23 21:15 PM Discharge Plan Visit Data Chief Complaint: Alcohol Intoxication Stated Complaint: ETOH/AMS ED Provider: Jose Cuba Discharge Problem: Acute alteration in mental status, Alcohol intoxication, Aspiration into airway Patient Disposition: Being Evaluated by Hospitalist Forms Stand Alone Forms: [facility] Referrals Referrals: PCP,NO [Primary Care Provider] - Alcohol intoxication Qualifiers: Complication of substance-induced condition: uncomplicated Qualified Code(s): F10.920 - Alcohol use, unspecified with intoxication, uncomplicated Aspiration into airway Qualifiers: Encounter type: initial encounter Qualified Code(s): T17.908A - Unspecified foreign body in respiratory tract, part unspecified causing other injury, initial encounter
[2023-05-26 20:04] LABS: Alanine Aminotransferase 19 U/L (7-52); Albumin Globulin Ratio 1.9 (0.9-2); Albumin Level 4.6 gm/dl (3.4-5.0); Alkaline Phosphatase 63 U/L (34-104); Anion Gap 7 (3-11); Aspartate Aminotransferase 22 U/L (13-39); BUN Creatinine Ratio 14.8 (10-20); Bilirubin,Total 0.4 mg/dl (0.2-1.0); Blood Urea Nitrogen 13 mg/dl (6-23); Calcium 8.8 mg/dl (8.6-10.3); Carbon Dioxide 27 mmol/L (21-32); Chloride 111 mmol/L (98-107); Est GFR (African American) 121.1 ml/min; Est GFR (Non-African American) 104.5 ml/min; Globulin 2.4 gm/dl (2.5-4.0); Glucose 112 mg/dl (70-99(Fasting)); Potassium 3.7 mmol/L (3.5-5.1); Sodium 145 mmol/L (136-145)
--- NOTE | 2023-05-26 21:16 | CT Scan Report ---
Exam(s): CT C SPINE EXAM: CT Cervical Spine Without Intravenous Contrast CLINICAL HISTORY: Reason for exam: trama. TECHNIQUE: Axial computed tomography images of the cervical spine without intravenous contrast. CTDI is 23.41 mGy and DLP is 518.29 mGy-cm. Automated exposure control was utilized for the study. A dose lowering technique was utilized adhering to the principles of ALARA. COMPARISON: No relevant prior studies available. FINDINGS: The vertebral body heights are maintained. The craniocervical junction is intact. The atlanto-dens interval is maintained. The dens is intact. There is no spondylolisthesis. Multilevel cervical spondylosis and degenerative disc disease. Straightening of the cervical lordosis. The unenhanced neck soft tissues are grossly unremarkable. The visualized lung apices are grossly clear. IMPRESSION: No acute fracture or subluxation of the cervical spine. Electronically signed by: Cresencio Rodney MD 05/26/23 21:14 PM
--- NOTE | 2023-05-26 21:16 | CT Scan Report ---
Exam(s): CT HEAD Without Contrast EXAM: CT Head Without Intravenous Contrast CLINICAL HISTORY: Reason for exam: trauma. TECHNIQUE: Axial computed tomography images of the head/brain without intravenous contrast. CTDI is 38.43 mGy and DLP is 702.46 mGy-cm. Automated exposure control was utilized for the study. A dose lowering technique was utilized adhering to the principles of ALARA. COMPARISON: No relevant prior studies available. FINDINGS: No acute intracranial hemorrhage. No midline shift or mass effect. The territorial ibrahim-white matter differentiation is maintained throughout. The ventricles and sulci are commensurate with age. The visualized orbits appear grossly unremarkable. The calvarium is intact. The visualized paranasal sinuses and mastoid air cells are grossly clear. IMPRESSION: No acute intracranial hemorrhage, midline shift, or mass effect. Electronically signed by: Cresencio Rodney MD 05/26/23 21:15 PM
[2023-05-26] MEDS ORDERED: SODIUM CHLORIDE 0.9% 500 ML IV STA (23:15)
[2023-05-26 23:43] LABS: Base Excess VBG 3.1 mEq/L; HCO3 VBG 30 mmol/L; Oxygen Saturation VBG < 60.0 %; PCO2 VBG 56 mmHg (38-50); PO2 VBG 35 mmHg; pH VBG 7.34 (7.36-7.41)
[2023-05-27 00:03] LABS: Basophils # (auto) 0.03 K/uL (0.00-0.20); Basophils % (auto) 0.4 %; Eosinophils # (auto) 0.05 K/uL (0.00-0.50); Eosinophils % (auto) 0.7 %; Hematocrit (blood only) 43.2 % (42.0-52.0); Hemoglobin 14.7 g/dl (14.0-18.0); Immature Granulocytes # (auto) 0.04 K/uL (0.01-0.20); Immature Granulocytes % (auto) 0.6 %; Lipase 23 U/L (11-82); Lymphocytes % (auto) 18.1 %; Mean Corpuscular Volume 88.2 fL (80.0-100.0); Mean Platelet Volume 10.7 fL (9.4-12.4); Monocytes # (auto) 0.18 K/uL (0.11-0.59); Monocytes % (auto) 2.5 %; Neutrophils # (auto) 5.59 K/uL (1.40-6.50); Neutrophils % (auto) 77.7 %; Platelet Count 159 K/uL (130-400); RDW Coefficient of Variation 12.7 % (11.5-14.5); RDW Standard Deviation 41.1 fL (36.4-46.3); White Blood Count 7.19 K/ul (4.8-10.8)
[2023-05-27 00:21] LABS: Troponin I High Sensitivity < 2.3 pg/ml (0-20)
--- NOTE | 2023-05-27 02:47 | History & Physical Report ---
Date of Service May 27, 2023 Assessment & Plan (1) Acute alteration in mental status: Plan: 42-year-old male no significant past medical history as per patient ongoing alcoholism says drinks 6-8 ounces of whiskey daily was at alcohol Anonymous meeting today was found on the floor with people and was brought to the ER Acute alteration mental status Possible from alcohol intoxication We will follow urine drug screen Currently alert and oriented CT head and cervical spine CT okay VBG okay, labs okay, troponin is negative Alcohol level 282 We will monitor on telemetry floor Possible aspiration into airway Empiric IV Unasyn We will monitor Alcoholism Banana bag P.o. thiamine and folic acid Alcohol withdrawal protocol with gabapentin and IV Ativan as needed Needs counseling DVT prophylaxis SCDs for now Disposition med/telemetry Full code (2) Alcohol intoxication: History of Present Illness Chief Complaint: Alcohol intoxication Primary Care Provider: NO PCP 42-year-old male no significant past medical history as per patient ongoing alcoholism says drinks 6-8 ounces of whiskey daily , was at alcohol Anonymous meeting today and was found on the floor with people and was brought to the ER. Question of trauma as patient was found on the floor. Seems patient become combative at times. Reported emesis prior to arrival. Currently patient is alert and awake and oriented. He does not know how he fell. Says he drank about 6 ounces of alcohol today. Denies any drugs use. Denies any smoking. Denies headache. No blurred visions. No earache or runny nose or sore throat. No cough. No feeling hot or cold. Denies chest pain or shortness of breath. Denies nausea or vomiting. Denies abdominal pain. States normal bowel and bladder movements. Currently resting comfortably and hemodynamically stable. Past medical history none as per patient Past surgical history none as per patient Medications none as per patient Social history. Denies smoking. Drinking alcohol 6 to 8 ounces of whiskey daily. States drinking for last 10 years. Denies any drug use. Family history. 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 ENT- oropharynx clear Neck- supple, no JVD, Lungs- clear to auscultation , no wheezing or crackles. Heart- regular rhythm; no murmur, no gallop. Abdomen- normal bowel sounds, soft, nontender, no distension. Extremities- no pretibial edema, no erythema seen. Neuro- alert, oriented x 3; PERRL, no facial palsy; no dysarthria; obeys commands, moves extremities. Skin- warm & dry Results & Data Results & Data Vital Signs (Past 12 Hours) Vital Signs Temp Pulse Pulse Resp BP BP Pulse Ox 05/27/23 02:00 65 15 105/65 100 05/27/23 01:00 68 19 97 05/26/23 23:31 77 20 99 05/26/23 23:00 71 14 101/75 98 05/26/23 22:18 67 05/26/23 21:00 85 13 106/68 97 05/26/23 19:29 64 16 100 05/26/23 19:25 64 05/26/23 19:20 65 14 99 05/26/23 19:20 05/26/23 19:05 36.7 C 62 15 116/79 96 O2 Del Method 05/27/23 02:00 Room Air 05/27/23 01:00 Room Air 05/26/23 23:31 05/26/23 23:00 05/26/23 22:18 05/26/23 21:00 05/26/23 19:29 Room Air 05/26/23 19:25 05/26/23 19:20 05/26/23 19:20 Room Air 05/26/23 19:05 Diagnostic Findings Laboratory Results WBC 7.19 K/ul (4.8-10.8) 05/26/23 23: RBC 4.90 M/uL (4.70-6.10) 05/26/23 23: Hgb 14.7 g/dl (14.0-18.0) 05/26/23 23: Hct 43.2 % (42.0-52.0) 05/26/23: MCV 88.2 fL (80.0-100.0) 05/26/23: MCH 30.0 pg (25.0-34.0) 05/26/23: MCHC 34.0 g/dL (32.0-36.0) 05/26/23: RDW Std Deviation 41.1 fL (36.4-46.3) 05/26/23: RDW Coeff of Eliu 12.7 % (11.5-14.5) 05/26/23: Plt Count 159 K/uL (130-400) 05/26/23 23: MPV 10.7 fL (9.4-12.4) 05/26/23 23: Immature Gran % (Auto) 0.6 % 05/26/23: Neut % (Auto) 77.7 % 05/26/23: Lymph % (Auto) 18.1 % 05/26/23: Day % (Auto) 2.5 % 05/26/23: Eos % (Auto) 0.7 % 05/26/23: Baso % (Auto) 0.4 % 05/26/23: Neut # (Auto) 5.59 K/uL (1.40-6.50) 05/26/23 23: Lymph # (Auto) 1.30 K/uL (1.20-3.40) 05/26/23: Day # (Auto) 0.18 K/uL (0.11-0.59) 05/26/23: Eos # (Auto) 0.05 K/uL (0.00-0.50) 05/26/23: Baso # (Auto) 0.03 K/uL (0.00-0.20) 05/26/23 23:30 Immature Gran # (Auto) 0.04 K/uL (0.01-0.20) 05/26/23 23:30 VBG pH 7.34 (7.36-7.41) L 05/26/23 23:30 VBG pCO2 56 mmHg (38-50) H 05/26/23 23:30 VBG pO2 35 mmHg 05/26/23 23:30 VBG HCO3 30 mmol/L 05/26/23 23:30 VBG O2 Saturation < 60.0 % 05/26/23 23:30 VBG Base Excess 3.1 mEq/L 05/26/23 23:30 Sodium 145 mmol/L (136-145) 05/26/23 19:15 Potassium 3.7 mmol/L (3.5-5.1) 05/26/23 19:15 Chloride 111 mmol/L (98-107) H 05/26/23 19:15 Carbon Dioxide 27 mmol/L (21-32) 05/26/23 19:15 Anion Gap 7 (3-11) 05/26/23 19:15 BUN 13 mg/dl (6-23) 05/26/23 19:15 Creatinine 0.88 mg/dl (0.6-1.4) 05/26/23 19:15 Est Cr Clr Drug Dosing Not Reportable 05/26/23 19:15 Est GFR ( Amer) 121.1 ml/min 05/26/23 19:15 Est GFR (Non-Af Amer) 104.5 ml/min 05/26/23 19:15 BUN/Creatinine Ratio 14.8 (10-20) 05/26/23 19:15 Glucose 112 mg/dl (70-99(Fasting)) H 05/26/23 19:15 Calcium 8.8 mg/dl (8.6-10.3) 05/26/23 19:15 Total Bilirubin 0.4 mg/dl (0.2-1.0) 05/26/23 19:15 AST 22 U/L (13-39) 05/26/23 19:15 ALT 19 U/L (7-52) 05/26/23 19:15 Alkaline Phosphatase 63 U/L (34-104) 05/26/23 19:15 Troponin I High Sens < 2.3 pg/ml (0-20) 05/26/23 23:30 Total Protein 7.0 gm/dl (6.0-8.3) 05/26/23 19:15 Albumin 4.6 gm/dl (3.4-5.0) 05/26/23 19:15 Globulin 2.4 gm/dl (2.5-4.0) L 05/26/23 19:15 Albumin/Globulin Ratio 1.9 (0.9-2) 05/26/23 19:15 Lipase 23 U/L (11-82) 05/26/23 23:30 Ethyl Alcohol mg/dL 282.0 mg/dl (<10.0) H 05/26/23 19:[address] 05/26/23 19:43 Exam(s): CT C SPINE EXAM: CT Cervical Spine Without Intravenous Contrast CLINICAL HISTORY: Reason for exam: trama. TECHNIQUE: Axial computed tomography images of the cervical spine without intravenous contrast. CTDI is 23.41 mGy and DLP is 518.29 mGy-cm. Automated exposure control was utilized for the study. A dose lowering technique was utilized adhering to the principles of ALARA. COMPARISON: No relevant prior studies available. FINDINGS: The vertebral body heights are maintained. The craniocervical junction is intact. The atlanto-dens interval is maintained. The dens is intact. There is no spondylolisthesis. Multilevel cervical spondylosis and degenerative disc disease. Straightening of the cervical lordosis. The unenhanced neck soft tissues are grossly unremarkable. The visualized lung apices are grossly clear. IMPRESSION: No acute fracture or subluxation of the cervical spine. Electronically signed by: Cresencio Rodney MD 05/26/23 21:[address] 05/26/23 19:43 Exam(s): CT HEAD Without Contrast EXAM: CT Head Without Intravenous Contrast CLINICAL HISTORY: Reason for exam: trauma. TECHNIQUE: Axial computed tomography images of the head/brain without intravenous contrast. CTDI is 38.43 mGy and DLP is 702.46 mGy-cm. Automated exposure control was utilized for the study. A dose lowering technique was utilized adhering to the principles of ALARA. COMPARISON: No relevant prior studies available. FINDINGS: No acute intracranial hemorrhage. No midline shift or mass effect. The territorial ibrahim-white matter differentiation is maintained throughout. The ventricles and sulci are commensurate with age. The visualized orbits appear grossly unremarkable. The calvarium is intact. The visualized paranasal sinuses and mastoid air cells are grossly clear. IMPRESSION: No acute intracranial hemorrhage, midline shift, or mass effect. Electronically signed by: Cresencio Rodney MD 05/26/23 21:15 PM ECG Additional Comments: ECG. Normal sinus rhythm rate of 70. Nonspecific ST changes in inferior leads Code Status & VTE Plan VTE Prophylaxis Plan VTE Prophylaxis will be ordered: Yes (2) Alcohol intoxication Complication of substance-induced condition: uncomplicated Qualified Code(s): F10.920 - Alcohol use, unspecified with intoxication, uncomplicated
[2023-05-27 03:39] LABS: Amphetamines+Metham, Urine Neg (Neg); Barbiturates, Urine Neg (Neg); Benzodiazepine, Urine Neg (Neg); Cocaine, Urine Neg (Neg); MDMA (Ecstacy), Urine Neg (Neg); Methadone, Urine Neg (Neg); Opiate, Urine Neg (Neg); Phencyclidine, Urine Neg (Neg)
[2023-05-27] MEDS ORDERED: NITROGLYCERIN SL 0.4 MG/TAB TAB SL PRN (04:42)
[2023-05-27] MEDS ORDERED: ONDANSETRON INJ 2 MG/ML 2 ML VIAL IV PRN (04:42)
[2023-05-27] MEDS ORDERED: LORazepam 2 MG/1 ML VIAL IV PRN ×3 (04:42)
[2023-05-27] MEDS ORDERED: AMPICILLIN SOD/SULBACTAM SOD 3 GM VIAL IV SCH (04:42)
[2023-05-27] MEDS ORDERED: GABAPENTIN 600 MG TAB PO ONE (04:42)
[2023-05-27] MEDS ORDERED: GABAPENTIN 1200MG ALCOHOL WITHDRAWAL LOAD PO STA (04:42)
[2023-05-27] MEDS ORDERED: Ativan IV Alcohol Withdrawal--Active Protocol IV PRN (04:42)
[2023-05-27] MEDS ORDERED: INFLUENZA VIRUS QUADRIVALENT VACCINE (IIV4) 0.5 ML SYR IM ONE (05:09)
[2023-05-27] MEDS ORDERED: Patient's ALLERGY Info needs ENTERED STA (05:37)
[2023-05-27] MEDS ORDERED: MULTI-VITAMIN INFUSION 10 ML, THIAMINE HCL 100 MG, FOLIC ACID 1 MG in SODIUM CHLORIDE 0... IV ONE (05:45)
[2023-05-27] MEDS: SODIUM CHLORIDE 0.9% 1,000 ML IV SCH ×3 (05:51→20:33)
[2023-05-27] MEDS: UNASYN 3000MG / NS q6h IV SCH ×3 (06:36→17:18)
--- NOTE | 2023-05-27 07:44 | XRay Report ---
XR chest 1V portable CLINICAL HISTORY: vomiting TECHNIQUE: Single frontal radiograph of the chest was obtained. Comparison: None available at the time of this dictation. FINDINGS: No lines and tubes are seen. The cardiomediastinal silhouette is normal. Faint airspace opacity is in the right lower lung. No evidence of pleural effusion or pneumothorax. IMPRESSION: Faint airspace opacities in the right lower lung which may represent atelectasis, pneumonia, and/or a spiration. ACT 112: Negative or not required by law. Electronically signed by: Donal Hall M.D. 05/27/2023 7:43 AM
[2023-05-27 08:05] LABS: Basophils # (auto) 0.03 K/uL (0.00-0.20); Basophils % (auto) 0.3 %; Eosinophils # (auto) 0.03 K/uL (0.00-0.50); Eosinophils % (auto) 0.3 %; Hematocrit (blood only) 40.1 % (42.0-52.0); Hemoglobin 13.8 g/dl (14.0-18.0); Immature Granulocytes # (auto) 0.03 K/uL (0.01-0.20); Immature Granulocytes % (auto) 0.3 %; Lymphocytes # (auto) 1.44 K/uL (1.20-3.40); Lymphocytes % (auto) 16.7 %; Mean Corpuscular Hemoglobin 29.9 pg (25.0-34.0); Mean Corpuscular Hgb Conc 34.4 g/dL (32.0-36.0); Mean Corpuscular Volume 86.8 fL (80.0-100.0); Mean Platelet Volume 10.6 fL (9.4-12.4); Monocytes # (auto) 0.26 K/uL (0.11-0.59); Neutrophils # (auto) 6.84 K/uL (1.40-6.50); Neutrophils % (auto) 79.4 %; Platelet Count 166 K/uL (130-400); RDW Coefficient of Variation 12.8 % (11.5-14.5); RDW Standard Deviation 40.5 fL (36.4-46.3); Red Blood Count 4.62 M/uL (4.70-6.10); White Blood Count 8.63 K/ul (4.8-10.8)
[2023-05-27 08:12] LABS: Anion Gap 8 (3-11); BUN Creatinine Ratio 12.3 (10-20); Blood Urea Nitrogen 9 mg/dl (6-23); Calcium 7.9 mg/dl (8.6-10.3); Carbon Dioxide 26 mmol/L (21-32); Chloride 112 mmol/L (98-107); Creatinine Clr Calc Pharmacy 137.5 ml/min; Est GFR (African American) 130.7 ml/min; Est GFR (Non-African American) 112.8 ml/min; Glucose 112 mg/dl (70-99(Fasting)); Magnesium 1.9 mg/dl (1.7-2.4); Potassium 3.8 mmol/L (3.5-5.1); Sodium 146 mmol/L (136-145)
--- NOTE | 2023-05-27 08:18 | Hospitalist Progress Note ---
Date of Service May 27, 2023 Assessment & Plan (1) Acute alteration in mental status: Plan: 42-year-old male no significant past medical history as per patient ongoing alcoholism says drinks 6-8 ounces of whiskey daily was at alcohol Anonymous meeting today was found on the floor with people and was brought to the ER Pt admitted today, seen for admission follow up. States he does not remember the events surrounding his admission. Remembers buying whiskey at about 3:30pm the day before. Denies acute concerns at this time. (2) Alcohol intoxication: Admission and Anticipated Discharge Date Admission Date: May 27, 2023 Results & Data Results & Data Vital Signs (Past 12 Hours) Vital Signs Temp Pulse Pulse Pulse Resp BP Pulse Ox 05/27/23 06:07 70 05/27/23 07:55 36.8 C 65 16 122/84 99 05/27/23 05:15 72 05/27/23 04:57 36.9 C 70 18 125/81 97 05/27/23 04:55 36.9 C 70 18 125/81 97 05/27/23 02:28 79 05/27/23 02:00 65 15 105/65 100 05/27/23 01:00 68 19 97 05/26/23 23:31 77 20 99 05/26/23 23:00 71 14 101/75 98 05/26/23 22:18 67 05/26/23 21:00 85 13 106/68 97 O2 Del Method 05/27/23 06:07 05/27/23 07:55 Room Air 05/27/23 05:15 05/27/23 04:57 Room Air 05/27/23 04:55 Room Air 05/27/23 02:28 05/27/23 02:00 Room Air 05/27/23 01:00 Room Air 05/26/23 23:31 05/26/23 23:00 05/26/23 22:18 05/26/23 21:00 (2) Alcohol intoxication Complication of substance-induced condition: uncomplicated Qualified Code(s): F10.920 - Alcohol use, unspecified with intoxication, uncomplicated
[2023-05-27 08:27] LABS: Troponin I High Sensitivity < 2.3 pg/ml (0-20)
[2023-05-27] MEDS: THIAMINE HCL 100 MG TAB PO SCH (09:16)
[2023-05-27] MEDS: FOLIC ACID 1 MG TAB PO SCH (09:16)
[2023-05-27] MEDS: GABAPENTIN 600 MG TAB PO SCH ×2 (13:55→20:34)
--- NOTE | 2023-05-27 14:46 | Electrocardiogram Report ---
Test Reason : Blood Pressure : / mmHG Vent. Rate : 070 BPM Atrial Rate : 070 BPM P-R Int : 204 ms QRS Dur : 092 ms QT Int : 358 ms P-R-T Axes : 076 061 067 degrees QTc Int : 386 ms Normal sinus rhythm Normal ECG No previous ECGs available Confirmed by Manpreet Hamm ([id number]) on 05/27/2023 2:46:06 PM Referred By: REFERRED SELF Confirmed By:Margarito Hamm
--- NOTE | 2023-05-27 14:47 | Electrocardiogram Report ---
Test Reason : Blood Pressure : / mmHG Vent. Rate : 067 BPM Atrial Rate : 067 BPM P-R Int : 184 ms QRS Dur : 096 ms QT Int : 376 ms P-R-T Axes : 073 061 062 degrees QTc Int : 397 ms Normal sinus rhythm Normal ECG When compared with ECG of 26-MAY-2023 23:24, (unconfirmed) No significant change was found Confirmed by Manpreet Hamm ([id number]) on 05/27/2023 2:47:02 PM Referred By: REFERRED SELF Confirmed By:Margarito Hamm
[2023-05-28] MEDS: UNASYN 3000MG / NS q6h IV SCH ×3 (00:25→13:00)
[2023-05-28] MEDS: SODIUM CHLORIDE 0.9% 1,000 ML IV SCH ×2 (04:07→14:16)
[2023-05-28 04:55] LABS: Basophils # (auto) 0.05 K/uL (0.00-0.20); Basophils % (auto) 0.6 %; Eosinophils # (auto) 0.19 K/uL (0.00-0.50); Eosinophils % (auto) 2.2 %; Hematocrit (blood only) 39.1 % (42.0-52.0); Hemoglobin 13.4 g/dl (14.0-18.0); Immature Granulocytes # (auto) 0.02 K/uL (0.01-0.20); Immature Granulocytes % (auto) 0.2 %; Lymphocytes # (auto) 2.75 K/uL (1.20-3.40); Lymphocytes % (auto) 31.7 %; Mean Corpuscular Hemoglobin 29.7 pg (25.0-34.0); Mean Corpuscular Hgb Conc 34.3 g/dL (32.0-36.0); Mean Corpuscular Volume 86.7 fL (80.0-100.0); Mean Platelet Volume 10.8 fL (9.4-12.4); Monocytes # (auto) 0.63 K/uL (0.11-0.59); Monocytes % (auto) 7.3 %; Neutrophils # (auto) 5.04 K/uL (1.40-6.50); Platelet Count 142 K/uL (130-400); RDW Coefficient of Variation 12.6 % (11.5-14.5); RDW Standard Deviation 39.8 fL (36.4-46.3); Red Blood Count 4.51 M/uL (4.70-6.10); White Blood Count 8.68 K/ul (4.8-10.8)
[2023-05-28 05:12] LABS: Albumin Level 3.8 gm/dl (3.4-5.0); BUN Creatinine Ratio 19.3 (10-20); Bilirubin,Total 0.7 mg/dl (0.2-1.0); Calcium 7.8 mg/dl (8.6-10.3); Creatinine Clr Calc Pharmacy 114.1 ml/min; Est GFR (African American) 121.1 ml/min; Est GFR (Non-African American) 104.5 ml/min; Globulin 1.9 gm/dl (2.5-4.0); Phosphorus 2.1 mg/dl (2.5-4.9); Potassium 3.5 mmol/L (3.5-5.1); Total Protein 5.7 gm/dl (6.0-8.3)
[2023-05-28] MEDS: GABAPENTIN 600 MG TAB PO SCH ×2 (05:42→15:05)
[2023-05-28] MEDS ORDERED: ENOXAPARIN INJ 40 MG/0.4 ML SYR SQ SCH (06:00)
[2023-05-28] MEDS: FOLIC ACID 1 MG TAB PO SCH (07:31)
[2023-05-28] MEDS: THIAMINE HCL 100 MG TAB PO SCH (07:31)
[2023-05-28] MEDS ORDERED: POTASSIUM PHOS 3 MMOL/1 ML INFUSION IV STA (09:19)
[2023-05-28] MEDS ORDERED: STAT IV/IM STA (09:20)
[2023-05-28] MEDS ORDERED: CALCIUM GLUCONATE 10% 1,000 MG in SODIUM CHLOR 0.9% MINI-B 50 ML IV ONE (09:20)
[2023-05-28] MEDS ORDERED: POTASSIUM PHOSPHATE 15 MMOL in SODIUM CHLORIDE 0.9% 250 ML IV ONE (09:30)
[2023-05-28] MEDS ORDERED: ACETAMINOPHEN 500 MG TAB PO PRN (12:17)
--- NOTE | 2023-05-28 15:51 | Discharge Summary ---
Discharge Summary Date of Service May 28, 2023 Notes For Next Care Provider Continue to monitor electrolytes Encourage alcohol cessation Medication Changes From Visit Augmentin 875-125mg BID for 12 more days Admission HPI Per Admitting Provider 42-year-old male no significant past medical history as per patient ongoing alcoholism says drinks 6-8 ounces of whiskey daily , was at alcohol Anonymous meeting today and was found on the floor with people and was brought to the ER. Question of trauma as patient was found on the floor. Seems patient become combative at times. Reported emesis prior to arrival. Currently patient is alert and awake and oriented. He does not know how he fell. Says he drank about 6 ounces of alcohol today. Denies any drugs use. Denies any smoking. Denies headache. No blurred visions. No earache or runny nose or sore throat. No cough. No feeling hot or cold. Denies chest pain or shortness of breath. Denies nausea or vomiting. Denies abdominal pain. States normal bowel and bladder movements. Currently resting comfortably and hemodynamically stable. Past medical history none as per patient Past surgical history none as per patient Medications none as per patient Social history. Denies smoking. Drinking alcohol 6 to 8 ounces of whiskey daily. States drinking for last 10 years. Denies any drug use. Family history. Denies any family history Admission Exam Per Admitting Provider General- Not in distress Head- atraumatic Eyes- PERRL,. ENT- oropharynx clear Neck- supple, no JVD, Lungs- clear to auscultation , no wheezing or crackles. Heart- regular rhythm; no murmur, no gallop. Abdomen- normal bowel sounds, soft, nontender, no distension. Extremities- no pretibial edema, no erythema seen. Neuro- alert, oriented x 3; PERRL, no facial palsy; no dysarthria; obeys commands, moves extremities. Skin- warm & dry Principal Dx & Hospital Course #1 = Principal Diagnosis (1) Acute alteration in mental status: (2) Alcohol intoxication: (3) Aspiration into airway: Plan 42-year-old male with no significant past medical history (as per patient) with chronic alcohol use admitted after he was found on the floor at an AA meeting and brought to the ED. AMS Alcohol intoxication Chronic alcohol use Pt states that he last remembers buying whiskey and drinking about 8oz before presentation. Acute alteration in mental status likely from alcohol intoxication Alcohol level 282 Urine drug screen with positive THC drug screen CT head and cervical spine with no acute changes Labs grossly unremarkable Pt currently alert and oriented x3, no acute distress AWSS protocol Banana bag Thiamine and folic acid supplementation Encourage alcohol cessation- pt declining resources to assist with cessation on discharge. Aspiration Pneumonia/Pneumonitis Chest xray concerning for airspace opacities in the right lower lung which may represent atelectasis, pneumonia, and/or aspiration. Given context, pt possibly had aspiration into airway Empiric IV Unasyn for 2 days, discharged with an additional 12 days of PO Augmentin PCP followup- pt with no current pcp, attempts will be made to schedule pt for follow up. Hypophosphatemia Hypocalcemia Electrolyte Disturbances Repleted with IV KPhos and Calcium gluconate PCP followup for continued monitoring Discharge Exam General: Alert, oriented. No acute distress Skin: No noted rashes or bruises Psych: Appropriate mood and affect Neuro: No gross deficits HEENT: NC/AT Chest: Nontender to palpation. CV: RRR Resp: Breath sounds clear bilaterally, no increased effort of breathing. Abdomen: Soft, nontender, nondistended. Extremities: No edema in lower extremities bilaterally. Updated Medication List Medication Instructions Recorded Confirmed Type acetaminophen 500 mg tablet 1,000 mg PO Q4H PRN Pain 11/20/18 12/07/18 History (Tylenol Extra Strength) ibuprofen 800 mg tablet 800 mg PO DIRECTED PRN Pain 11/20/18 12/07/18 History amoxicillin 875 mg-potassium 1 tab PO BID #24 tabs 05/28/23 Rx clavulanate 125 mg tablet Hospital Stay Data Consultations 05/27/23 02:15 ED Decision to Admit Stat Diagnostic Imagining Performed 05/26/23 19:43 CT cervical spine wo con Stat CT head/brain wo con Stat Chest X-Ray 05/26/23 19:29 XR chest 1V portable CLINICAL HISTORY: vomiting TECHNIQUE: Single frontal radiograph of the chest was obtained. Comparison: None available at the time of this dictation. FINDINGS: No lines and tubes are seen. The cardiomediastinal silhouette is normal. Faint airspace opacity is in the right lower lung. No evidence of pleural effusion or pneumothorax. IMPRESSION: Faint airspace opacities in the right lower lung which may represent atelectasis, pneumonia, and/or aspiration. ACT 112: Negative or not required by law. Electronically signed by: Donal Hall M.D. 05/27/2023 7:[address] 05/26/23 19:43 Exam(s): CT C SPINE EXAM: CT Cervical Spine Without Intravenous Contrast CLINICAL HISTORY: Reason for exam: trama. TECHNIQUE: Axial computed tomography images of the cervical spine without intravenous contrast. CTDI is 23.41 mGy and DLP is 518.29 mGy-cm. Automated exposure control was utilized for the study. A dose lowering technique was utilized adhering to the principles of ALARA. COMPARISON: No relevant prior studies available. FINDINGS: The vertebral body heights are maintained. The craniocervical junction is intact. The atlanto-dens interval is maintained. The dens is intact. There is no spondylolisthesis. Multilevel cervical spondylosis and degenerative disc disease. Straightening of the cervical lordosis. The unenhanced neck soft tissues are grossly unremarkable. The visualized lung apices are grossly clear. IMPRESSION: No acute fracture or subluxation of the cervical spine. Electronically signed by: Cresencio Rodney MD 05/26/23 21:[address] 05/26/23 19:43 Exam(s): CT HEAD Without Contrast EXAM: CT Head Without Intravenous Contrast CLINICAL HISTORY: Reason for exam: trauma. TECHNIQUE: Axial computed tomography images of the head/brain without intravenous contrast. CTDI is 38.43 mGy and DLP is 702.46 mGy-cm. Automated exposure control was utilized for the study. A dose lowering technique was utilized adhering to the principles of ALARA. COMPARISON: No relevant prior studies available. FINDINGS: No acute intracranial hemorrhage. No midline shift or mass effect. The territorial ibrahim-white matter differentiation is maintained throughout. The ventricles and sulci are commensurate with age. The visualized orbits appear grossly unremarkable. The calvarium is intact. The visualized paranasal sinuses and mastoid air cells are grossly clear. IMPRESSION: No acute intracranial hemorrhage, midline shift, or mass effect. Electronically signed by: Cresencio Rodney MD 05/26/23 21:15 PM Discharge Instructions Given to Patient (Per Discharging Provider) Ted, you were admitted after you were found passed out after drinking alcohol. We noted that you had a possible pneumonia from aspirating likely while you were passed out and treated you with IV antibiotics. We are discharging you with 12 more days of the oral antibiotic Augmentin. Please take it as prescribed. We offered services to help you with stopping the chronic alcohol use but you declined. We will work on getting you scheduled with a primary care provider that you can keep in touch with for continued followup and in case you change your mind about resources. It was a pleasure taking care of you during your time here. Total Time Total Time Spent Total Time Spent (In Minutes): > 30 minutes
[2023-05-29 02:28] LABS: Marijuana Quant, GCMS Urine 1235 ng/mL (<5)
[2023-05-29] MEDS ORDERED: GABAPENTIN 600 MG TAB PO SCH (10:00)
[2023-05-30] MEDS ORDERED: GABAPENTIN 600 MG TAB PO SCH (22:00)
== END 2023-05-28 16:17 | disposition home or self-care (01) | DRG 897 ==
LOC: ED 19:04 → EDBD 19:04 → 2W 05-27 02:26 → MERGE 05-27 02:26 → INTOOBSV 05-27 02:26 → 2W 05-27 04:21